=== PATIENT | male | born 1995 | race Caucasian/White ===

== ENCOUNTER 2020-02-09 18:30 | Inpatient (IN) | payer OTHER ==
[2020-02-09] MEDS ORDERED: Lactated Ringer's 500 ML IV SCH (20:30)
[2020-02-09] MEDS ORDERED: HYDROcodone/Acetaminophen 5/325 mg Tablet PO PRN (20:45)
[2020-02-09] MEDS ORDERED: Promethazine HCl 12.5 MG in Sodium Chloride 0.9% 50 ML IVPB PRN (20:45)
[2020-02-09] MEDS ORDERED: cloNIDine 0.1 MG TAB PO PRN (20:45)
[2020-02-09] MEDS ORDERED: Guaifenesin DM 100-10/5 ML UDCUP PO PRN (20:45)
[2020-02-09] MEDS ORDERED: Acetaminophen 325 MG TAB PO PRN (20:45)
[2020-02-09] MEDS ORDERED: Labetalol HCl 100 MG/20 ML VIAL SLOW IVP PRN (20:45)
[2020-02-09] MEDS ORDERED: Electrolyte Replacement Protocol 1 EACH FS SCH (20:45)
[2020-02-09] MEDS ORDERED: Morphine 2 MG/ML VIAL SLOW IVP PRN (20:45)
[2020-02-09] MEDS ORDERED: Ondansetron PF 4 MG/2 ML Vial IVP PRN (20:45)
--- NOTE | 2020-02-09 20:48 | PDOC.HHP ---
Hospitalist HPI - History of Present Illness Abdominal pain History of Present Illness: Patient is a 24 year old male with PMH splenectomy who presents as transfer from [facility] for abdominal pain x 2 days. He developed an abdominal pain, was epigastric and now LUQ localized, improved with tums, but worsened after eating dinner. He reports nausea, vomiting which was quite severe. He had a red BM as well. no fever, headaches, no SOB or chest pain. Outside records reviewed, pertinent findings include WBC 11.1, tbili 4.0, AST 980, ALT 1195. lipase 18, lactic acid 0.7. platelets 633. UA w/ urobilinogen. covid screen negative. CT a/p revealed cholelithiasis, small hiatal hernia.Given IVF, pain medications at [facility], transferred here. he currently complains of abdominal pain which is coming back after dilaudid at [facility] I discussed case with Dr Huggins who is consulting from GI service. Hospitalist ROS - Review of Systems Constitutional: reports: malaise. denies: fever, chills, sweats, weakness, other Eyes: denies: pain, vision change, conjunctivae inflammation, eyelid inflammation, redness, other ENT: denies: ear pain, ear discharge, nose pain, nose discharge, nose congestion, mouth pain, mouth swelling, throat pain, throat swelling, other Respiratory: denies: cough, dry, shortness of breath, hemoptysis, SOB with excertion, pleuritic pain, sputum, wheezing, other Cardiovascular: denies: chest pain, palpitations, orthopnea, paroxysmal noc. dyspnea, edema, light headedness, other Gastrointestinal: reports: nausea, vomiting, abdominal pain, hematochezia. denies: constipation, melena Genitourinary: denies: dysuria, frequency, incontinence, hematuria, retention, other Musculoskeletal: denies: neck pain, shoulder pain, arm pain, back pain, hand pain, leg pain, foot pain, other Skin: denies: rash, lesions, crystal, bruising, other Neurological: denies: weakness, numbness, incoordination, change in speech, confusion, seizures, other All other systems reviewed; all pertinent +/- noted in HPI/Subj - Medication Medications: reviewed Hospitalist History - Past Medical History Other Medical History: no significant PMH - Past Surgical History Other Surgical History: splenectomy - Family History Family History: reports: no pertinent history - Social History Alcohol: reports: Rare - Exam General Appearance: NAD, awake alert Eye: PERRL, anicteric sclera ENT: normocephalic atraumatic, no oropharyngeal lesions, moist mucosa Neck: supple, symmetric, no JVD, no thyromegaly, no lymphadenopathy, no carotid bruit Heart: RRR, no murmur, no gallops, no rubs, normal peripheral pulses Respiratory: CTAB, no wheezes, no rales, no ronchi, normal chest expansion, no tachypnea, normal percussion Gastrointestinal: soft, non-distended, normal bowel sounds, no palpable masses, no hepatomegaly, no splenomegaly, no bruit Gastrointestinal - other findings: diffuse abdominal tenderness to shallow palpation, no guarding or rebound Extremities: no cyanosis, no clubbing, no edema Skin: normal turgor, no lesions, no rashes Neurological: cranial nerve grossly intact, normal sensation to touch, no weakness, no focal deficits, no new deficit Musculoskeletal: normal tone, normal strength, no muscle wasting Psychiatric: normal affect, normal behavior, A&O x 3 Hospitalist Results - Labs Additional comment: 25 pages outside records reviewed, see HPI for summary Hospitalist H&P A/P - Plan Plan: Patient is a 24 year old male with PMH splenectomy who presents as transfer from [facility] for abdominal pain x 2 days. 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 lipase 18, lactic acid 0.7. platelets 633. UA w/ urobilinogen. covid screen negative. - outside hospital CT a/p revealed cholelithiasis, small hiatal hernia - admitted to floor - IVF, zosyn, PRN pain medications, NPO - appreciate GI consultation, follow up AM labs and hepatitis panel DVT ppx - SCDs, hold heparin given report of a red BM GI ppx full code
[2020-02-09] MEDS: Lactated Ringer's 1,000 ML IV SCH (20:54)
[2020-02-09 21:02] VITALS: BMI 21.3
[2020-02-09] MEDS: metroNIDAZOLE 500 MG TAB PO SCH (21:20)
[2020-02-09] MEDS: Famotidine 20 MG TAB PO SCH (21:20)
--- NOTE | 2020-02-09 21:38 | CON ---
DATE OF CONSULTATION: 02/09/2020 CHIEF COMPLAINT: Abdominal pain. HISTORY OF PRESENT ILLNESS: Mr. Lyles is a 24-year-old man, who presented to the [facility] ER with abdominal pain this afternoon. He started with an epigastric sharp pain to the right upper quadrant pain on . Initially, the pain was mild, but then this afternoon, the pain intensified and he came onto the emergency room for further care. He did vomit once at home. He had one episode of diarrhea this morning, but otherwise, no persistent diarrhea, constipation, or blood in the stool. At [facility], he had an ultrasound performed on his abdomen for the right upper quadrant pain, which showed cholelithiasis and a common bile duct dilated at 7-8 mm. His liver tests were elevated and he was transferred to [facility] because [facility] was unable to perform ERCP if needed. He has had no fever. His weight has been stable. He did take some Pepcid and Tums without significant improvement. PAST MEDICAL HISTORY: He had hemolytic anemia previously, for which he underwent splenectomy with resolution of the problem. PAST SURGICAL HISTORY: Splenectomy and upper endoscopy in the past. FAMILY HISTORY: Negative for GI malignancy. SOCIAL HISTORY: Drinks two whiskey drinks per weekend, otherwise no alcohol. He dips about a can of tobacco per day. No smoking. ALLERGIES: INCLUDE PENICILLIN. MEDICATIONS: At home prior to admission, none other than the, 1. Pepcid. 2. Tums mentioned above. In the ER at [facility], he received, 1. 2 L of saline. 2. Dilaudid. 3. Phenergan. REVIEW OF SYSTEMS: Negative x10 systems reviewed except as stated in history of present illness. PHYSICAL EXAMINATION: VITAL SIGNS: Temperature 97.7, pulse 64, and blood pressure 126/83. GENERAL: He is in no acute distress. He is sleepy from the Dilaudid and often has to be stimulated to stay on track with the discussion. He is oriented x3. HEENT: His eyes have slight scleral icterus. His oropharynx is clear without lesions. NECK: No cervical or supraclavicular lymphadenopathy. LUNGS: Clear to auscultation bilaterally. HEART: Regular rate and rhythm without murmur. ABDOMEN: Soft, tender in the epigastric to right upper quadrant region somewhat. This pain has shifted more towards midline now, almost towards the left upper quadrant. EXTREMITIES: Have no lower extremity edema. NEUROLOGIC: Cranial nerves are grossly intact. Pupils are constricted from the pain medicine. LABORATORY DATA: He had COVID-19 swab, which was negative. His lipase was 18, creatinine 0.77, bilirubin 4, alkaline phosphatase 126, AST 980, ALT 1195. CT scan showed gallstones, but no obvious biliary duct dilation. Ultrasound showed the common bile duct mildly dilated at 7-8 mm. IMPRESSION: 1. Cholelithiasis with possible choledocholithiasis. 2. Abnormal liver tests, most likely secondary to choledocholithiasis. Rule out otherwise acute hepatitis. He has had no Tylenol intake. No significant alcohol intake. We will still need to send the acute viral hepatitis panel. RECOMMENDATIONS: 1. Labs to check for other causes of acute hepatitis. 2. The trend of his liver tests will likely dictate the next step. If his liver tests have markedly improved tomorrow and his viral hepatitis screen is negative, then the likely next step is cholecystectomy with intraoperative cholangiogram. If his liver tests remain elevated, then we can proceed with ERCP. His pain has shifted somewhat more toward the midline. We will need to recheck a lipase in the morning. Of note, his globulin is 3, which is not suggestive of autoimmune hepatitis. Job ID: [id number]
[2020-02-10 05:20] LABS: #Basophils 0.1 thou/uL (0.0-0.2); #Eosinphils 0.8 thou/uL (0.0-0.7); #Lymphocytes 1.9 thou/uL (1.20-3.40); #Monocytes 1.5 thou/uL (0.11-0.59); #Neutrophils 7.2 thou/uL (1.40-6.50); %Basophils 0.6 % (0.0-1.0); %Eosinophils 6.9 % (0.0-10.0); %Lymphocytes 16.4 % (21.0-51.0); %Monocytes 13.4 % (0.0-10.0); %Neutrophils 62.8 % (42.0-75.0); Hemoglobin 14.7 g/dL (14.0-18.0); Mean Corpuscular HGB CONC 34.3 g/dL (32.0-36.0); Mean Corpuscular Hemoglobin 32.5 pg (27.0-31.0); Mean Corpuscular Volume 94.7 fL (78.0-98.0); Platelet Count 573 thou/uL (130-400); RBC Distribution Width 11.7 % (11.5-14.5); Red Blood Cell (RBC) Count 4.53 mill/uL (4.70-6.10); White Blood Cell (WBC) Count 11.5 thou/uL (4.8-10.8)
[2020-02-10 05:56] LABS: ALT (SGPT) 846 U/L (8-55); AST (SGOT) 385 U/L (5-34); Albumin 3.8 g/dL (3.5-5.0); Alkaline Phosphatase 133 U/L (40-110); Anion Gap 16 mmol/L (10-20); BUN (Urea Nitrogen) 13 mg/dL (8.9-20.6); Bilirubin, Total 2.8 mg/dL (0.2-1.2); Calc. Creatinine Clearance 145 mL/min (70-130); Calcium 8.8 mg/dL (7.8-10.44); Carbon Dioxide 25 mmol/L (22-29); Chloride 103 mmol/L (98-107); Globulin 2.6 g/dL (2.4-3.5); Glucose 71 mg/dL (70-105); Lipase 25 U/L (8-78); Protein, Total 6.4 g/dL (6.0-8.3); Sodium 140 mmol/L (136-145)
[2020-02-10 06:09] LABS: HBCM Index 0.06 S/CO (0-0.79); HBSAg Index 0.16 S/CO (0-0.99); Hep A IgM AB Non-Reactive (NonReactive); Hep B Surf Ag Non-Reactive S/CO (NonReactive); Hep C IgG Ab Non-Reactive (NonReactive); Hep C Index 0.09 S/CO (0-0.79); Hepatitis B Core IgM Abs Non-Reactive (NonReactive)
[2020-02-10] MEDS: Lactated Ringer's 1,000 ML IV SCH ×3 (07:34→15:53)
[2020-02-10] MEDS: metroNIDAZOLE 500 MG TAB PO SCH ×3 (09:00→21:43)
[2020-02-10] MEDS: Polyethylene Glycol 3350 17 GM Packet PO SCH (09:00)
[2020-02-10] MEDS: Famotidine 20 MG TAB PO SCH ×2 (09:00→21:43)
[2020-02-10] MEDS ORDERED: Iothalamate Meglumine 60% 50 ML VIAL FS ONE ×2 (09:01→12:47)
[2020-02-10] MEDS ORDERED: Indomethacin 50 MG SUPP ONE (09:05)
[2020-02-10] MEDS ORDERED: Dexamethasone 20 MG/5 ML VIAL ONE (09:22)
[2020-02-10] MEDS ORDERED: Ondansetron PF 4 MG/2 ML Vial ONE (09:22)
[2020-02-10] MEDS ORDERED: Rocuronium Bromide 10 MG/ML (10ML VIAL) ONE (09:22)
[2020-02-10] MEDS ORDERED: Lidocaine 1% PF 5 ML VIAL ONE (09:22)
[2020-02-10] MEDS ORDERED: PROPOFOL 200 MG/20 ML VIAL ONE (09:22)
--- NOTE | 2020-02-10 09:39 | PRG ---
DATE OF SERVICE: 02/10/2020 SUBJECTIVE: Mr. Lyles's pain is markedly improved today. His right upper quadrant pain has resolved and he just has some soreness over his left upper quadrant. OBJECTIVE: VITAL SIGNS: Temperature 97.5, pulse 87, blood pressure 109/63. GENERAL: He is in no acute distress. Alert and oriented x3. LUNGS: Clear to auscultation bilaterally. HEART: Regular rate and rhythm without murmur. ABDOMEN: Soft, nontender, and nondistended. Bowel sounds present. EXTREMITIES: No lower extremity edema. LABORATORY DATA: White blood cell count 11.5, hemoglobin 14.7, platelets 573, bilirubin 2.8, AST 385, ALT is 846, alkaline phosphatase 133, lipase 25. Viral hepatitis panel is negative. IMPRESSION: Choledocholithiasis. His pain is markedly improved and his bilirubin has dropped significantly. RECOMMENDATIONS: We will plan to proceed with laparoscopic cholecystectomy with intraoperative cholangiogram first. If the cholangiogram shows a persistent stone, then we will follow with the ERCP. Job ID: [id number]
[2020-02-10] MEDS ORDERED: Morphine 2 MG/ML VIAL ONE (09:48)
--- NOTE | 2020-02-10 10:10 | CON ---
DATE OF CONSULTATION: CHIEF COMPLAINT: Right upper quadrant abdominal pain. HISTORY OF PRESENT ILLNESS: The patient is a 24-year-old male who went to the [facility] with severe right upper quadrant pain and hyperbilirubinemia. He was found to have gallstones and probable choledocholithiasis. They did not have anybody contract clerk over there for ERCP, so he was referred here. He was sent over here and this morning, he feels a lot better. His right upper quadrant pain is pretty well gone. He has now developed some left upper quadrant abdominal pain and his bilirubin has significantly dropped, so I was asked to see him for lap rona and cholangiogram. PAST MEDICAL HISTORY: He is otherwise healthy. He did have a history of hemolytic anemia. PAST SURGICAL HISTORY: He had a splenectomy as a child for hemolytic anemia. MEDICATIONS: He is on no medications. ALLERGIES: HE HAS AN ALLERGY TO PENICILLIN AND CECLOR. FAMILY HISTORY: Heart disease. SOCIAL HISTORY: He is . 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 Rare alcohol. PHYSICAL EXAMINATION: VITAL SIGNS: Temperature 98, pulse 90, and blood pressure 110/61. GENERAL: Well-developed, well-nourished male, in minimal distress, although he is holding his left side. HEENT: Possible slight jaundice. LUNGS: Clear. HEART: Regular rate and rhythm. ABDOMEN: Soft, tender in the right upper quadrant and a little bit in the left upper quadrant. EXTREMITIES: Unremarkable. LABORATORY DATA: White count 11.5, hemoglobin and hematocrit of 14 and 42, platelet count 573. His T bilirubin is down from 6 to 2.8, AST of 385, ALT of 846, and alkaline phosphatase 133. ASSESSMENT: Symptomatic cholelithiasis with choledocholithiasis. PLAN: Laparoscopic cholecystectomy with intraoperative cholangiogram. CONSENT: I have discussed the planned procedure as well as risk of bleeding, infection, injury to bile duct, bowel need to open. He understands and gives informed consent. Job ID: [id number]
--- NOTE | 2020-02-10 12:29 | PDOC.HOSPP ---
- Subjective Encounter Date: 02/10/20 Encounter Time: 08:00 Subjective: Patient seen and examined. No new complaints. No overnight events - Objective Vital Signs & Weight: Vital Signs (12 hours) Temp Pulse Resp BP Pulse Ox 02/10/20 08:33 98.0 F 90 18 110/61 97 02/10/20 04:37 97.5 F L 87 16 109/63 95 02/10/20 00:45 97.5 F L 64 14 106/64 96 Weight Weight 157 lb 3.2 oz I&O: 02/09/20 02/10/20 02/11/20 06:59 06:59 06:59 Intake Total 1500 Balance 1500 Result Diagrams: 02/10/20 05:06 02/10/20 05:06 Hospitalist ROS - Review of Systems ENT: denies: ear pain, ear discharge, nose pain, nose discharge, nose congestion, mouth pain, mouth swelling, throat pain, throat swelling, other Respiratory: denies: cough, dry, shortness of breath, hemoptysis, SOB with excertion, pleuritic pain, sputum, wheezing, other Cardiovascular: denies: chest pain, palpitations, orthopnea, paroxysmal noc. dyspnea, edema, light headedness, other Gastrointestinal: denies: nausea, vomiting, abdominal pain, diarrhea, constipation, melena, hematochezia, other Genitourinary: denies: dysuria, frequency, incontinence, hematuria, retention, other Musculoskeletal: denies: neck pain, shoulder pain, arm pain, back pain, hand pain, leg pain, foot pain, other - Medication Medications: Active Medications Generic Name Dose Route Start Last Admin Trade Name Na PRN Reason Stop Dose Admin Famotidine 20 mg 02/09/20 21:00 02/09/20 21:20 Famotidine 20 Mg Tab PO 20 mg BID ANTIONE Administration Lactated Ringer's 1,000 mls @ 150 mls/hr 02/09/20 20:30 02/10/20 07:34 Lactated Ringer's IV Not Given .[id number] ANTIONE Levofloxacin 750 mg 02/10/20 06:00 02/10/20 07:34 Levofloxacin 750 Mg Tab PO Not Given 0600 [facility] Metronidazole 500 mg 02/09/20 21:00 02/09/20 21:20 Metronidazole 500 Mg Tab PO 500 mg TID ANTIONE Administration Morphine Sulfate 2 mg 02/09/20 20:45 02/09/20 21:25 Morphine 2 Mg/Ml Vial SLOW IVP 2 mg Q4H PRN Administration severe pain 4-10 - Exam General Appearance: NAD, awake alert Eye: PERRL, anicteric sclera ENT: normocephalic atraumatic, no oropharyngeal lesions Neck: supple, symmetric, no JVD Heart: RRR, no murmur, no gallops, no rubs Respiratory: CTAB, no wheezes, no rales, no ronchi Gastrointestinal: soft, non-distended, normal bowel sounds Extremities: no cyanosis, no clubbing, no edema Skin: normal turgor, no lesions Neurological: no focal deficits Musculoskeletal: normal tone, normal strength Hosp A/P (1) Choledocholithiasis Code(s): K80.50 - CALCULUS OF BILE DUCT W/O CHOLANGITIS OR CHOLECYST W/O OBST Status: Acute (2) Abnormal LFTs Code(s): R94.5 - ABNORMAL RESULTS OF LIVER FUNCTION STUDIES Status: Acute - Plan old records reviewed/req Patient is plan for laparoscopic cholecystectomy and intraoperative cholangiogram, based on cholangiogram report will decide if ERCP needed or not We will observe additional day and tomorrow we will repeat labs Medication reviewed and continue provide symptomatic and supportive care.
[2020-02-10] MEDS ORDERED: Lidocaine 1% w/Epinephrine 1:100K 20 ML VIAL ONE (12:47)
[2020-02-10] MEDS ORDERED: Bupivacaine 0.25% HCL 30 ML VIAL ONE (12:47)
[2020-02-10] MEDS ORDERED: Fentanyl 100 MCG/2 ML VIAL ONE ×3 (12:48→15:25)
[2020-02-10] MEDS ORDERED: Clindamycin/D5W 900 mg/50 ml Premix Bag ONE (13:09)
[2020-02-10] MEDS ORDERED: Levofloxacin 500 mg/D5W 100 ml Premix Bag ONE (13:09)
[2020-02-10] MEDS ORDERED: Morphine 2 MG/ML VIAL SLOW IVP PRN (14:40)
[2020-02-10] MEDS ORDERED: HYDROcodone/Acetaminophen 10/325 mg Tablet PO PRN (14:40)
[2020-02-10] MEDS ORDERED: Promethazine HCl 25 MG/ML VIAL IM PRN ×3 (14:40→14:47)
[2020-02-10] MEDS ORDERED: Mag-Al 1200 mg/1200 mg/30 ML UDCUP PO PRN (14:40)
[2020-02-10] MEDS ORDERED: Dextrose 5% in Water 1,000 ML IV PRN (14:40)
[2020-02-10] MEDS ORDERED: Calcium Carbonate 500 MG ChewTAB PO PRN (14:40)
[2020-02-10] MEDS ORDERED: hydrALAZINE 20 MG/ML VIAL SLOW IVP PRN (14:40)
[2020-02-10] MEDS ORDERED: Dextrose 50% Abboject 50 ML SYRINGE SLOW IVP PRN (14:40)
[2020-02-10] MEDS ORDERED: Ondansetron PF 4 MG/2 ML Vial IVP PRN (14:40)
[2020-02-10] MEDS ORDERED: Morphine 4 MG/ML VIAL SLOW IVP PRN (14:40)
[2020-02-10] MEDS ORDERED: HYDROmorphone 2 MG/ML VIAL SLOW IVP PRN (14:46)
[2020-02-10] MEDS ORDERED: Ondansetron HCl/PF 4 MG/2 ML Vial IVP PRN ×2 (14:46→14:47)
[2020-02-10] MEDS ORDERED: Promethazine HCl 25 MG/ML VIAL SLOW IVP PRN ×2 (14:46→14:47)
[2020-02-10] MEDS ORDERED: Ketorolac Tromethamine 30 MG/ML VIAL ONE (14:47)
[2020-02-10] MEDS ORDERED: Ketorolac Tromethamine 30 MG/ML VIAL IVP PRN (14:47)
--- NOTE | 2020-02-10 16:03 | RAD ---
Exam: Intraoperative cholangiogram Exposure: 0.133 mg. 1 second FINDINGS: Single intraoperative view demonstrates cannulation of the cystic duct. There is opacificat ion of the common bile duct with passage of radiotracer into the duodenum. No filling defect. IMPRESSION: Intraoperative fluoroscopy as above.
--- NOTE | 2020-02-10 19:35 | OP ---
DATE OF PROCEDURE: 02/10/2020 PREOPERATIVE DIAGNOSES: Possible choledocholithiasis, left upper quadrant abdominal pain. PROCEDURE PERFORMED: Laparoscopic cholecystectomy with lysis of adhesions. INDICATIONS FOR PROCEDURE: This is a 24-year-old male who as a child had undergone a laparoscopic splenectomy for hemolytic anemia. He was transferred from [facility] with probable choledocholithiasis and elevated bilirubin. However, over the night, his pain got better in the right upper quadrant. His bilirubin dropped from 6 to 2. Also started having quite a bit of left upper quadrant pain, where he had a previous splenectomy. FINDINGS: Gallbladder was full of stones. The cholangiogram showed no filling defects, free flow into the duodenum. There was an area of adhesions in left upper quadrant that were lysed. DESCRIPTION OF PROCEDURE: After informed consent was obtained, the patient was taken to the operating room, given general endotracheal anesthesia. He was placed in the supine position. His abdomen was prepped and draped in usual fashion. Local anesthesia was infiltrated subcutaneously and deep, and a subumbilical incision was performed. Subcu was divided sharply. There were some adhesions near the umbilicus, which were taken down digitally and a blunt 12 mm trocar was inserted. Pneumoperitoneum was created to a pressure of 15 mmHg. A 0-degree laparoscope was inserted under direct vision, three 5-mm ports were placed subcostally. The gallbladder was grasped, advanced superiorly. The peritoneum was dissected to expose the cystic duct and cystic artery in critical view. A clip was placed at the base of the gallbladder, and an incision was made in the cystic duct. An Arrow cholangiocatheter was inserted. An intraoperative cholangiogram was performed utilizing fluoroscopy. It showed free flow into the duodenum, no filling defects. The catheter was removed. The duct triply ligated with hemoclips and divided. The artery triply ligated with hemoclips and divided. The gallbladder was removed from its fossa utilizing electrocautery. It was removed from the umbilical port and sent to Pathology for further analysis. Hemostasis was assured and I looked around for his left upper quadrant pain. The only thing I could find was adhesions. Now, he had adhesions near his umbilicus as well, there was an isolated area of adhesions in the left upper quadrant. These were taken down utilizing the LigaSure. Hemostasis was assured. Trocars and retractors were removed. The fascia was closed with interrupted 0 Vicryl suture. The skin was closed with interrupted 4-0 Rapide. Dermabond was applied. The patient tolerated the procedure well, transferred to Recovery in good condition. Sponge and needle count verified correct x2. Job ID: [id number]
[2020-02-10] MEDS ORDERED: Heparin 5,000 UNITS/ML VIAL SC SCH (21:00)
[2020-02-10] MEDS: Famotidine/PF 20 mg/2ml Vial SLOW IVP SCH (21:43)
[2020-02-10] MEDS ORDERED: Doxylamine 25 MG TAB PO PRN (22:41)
[2020-02-10 22:51] LABS: Bacteria/HPF None Seen HPF (None Seen); Bilirubin Negative (Negative); Blood, Urine Negative (Negative); Clarity Clear (Clear); Glucose, Urine (Dipstick) Normal (Negative); Ketone, Urine 10 mg/dL (Negative); Leukocyte Negative Leu/uL (Negative); Nitrite Negative (Negative); Protein, Urine (Dipstick) Negative (Neg-Trace); RBC/HPF 0-3 HPF (0-3); Specific Gravity, Urine 1.006 (1.002-1.036); Squamous Epithelial None Seen HPF (0-3); Urobilinogen Normal mg/dL (Less than 2); WBC/HPF 0-3 HPF (0-3); pH, Urine 5.5 (5.0-9.0)
[2020-02-10 22:52] LABS: Urine Culture Reflex No No
[2020-02-11] MEDS: HYDROcodone/Acetaminophen 10/325 mg Tablet PO PRN ×3 (03:27→12:21)
[2020-02-11] MEDS: Lactated Ringer's 1,000 ML IV SCH (04:09)
[2020-02-11 05:29] LABS: #Eosinphils 0.2 thou/uL (0.0-0.7); #Monocytes 2.6 thou/uL (0.11-0.59); #Neutrophils 14.8 thou/uL (1.40-6.50); %Basophils 0.1 % (0.0-1.0); %Lymphocytes 10.2 % (21.0-51.0); %Monocytes 13.5 % (0.0-10.0); %Neutrophils 75.2 % (42.0-75.0); Hemoglobin 13.9 g/dL (14.0-18.0); Mean Corpuscular HGB CONC 34.8 g/dL (32.0-36.0); Mean Corpuscular Hemoglobin 32.5 pg (27.0-31.0); Mean Corpuscular Volume 93.3 fL (78.0-98.0); Platelet Count 535 thou/uL (130-400); RBC Distribution Width 11.6 % (11.5-14.5); Red Blood Cell (RBC) Count 4.27 mill/uL (4.70-6.10); White Blood Cell (WBC) Count 19.6 thou/uL (4.8-10.8)
[2020-02-11 05:55] LABS: ALT (SGPT) 537 U/L (8-55); AST (SGOT) 123 U/L (5-34); Albumin 3.8 g/dL (3.5-5.0); Alkaline Phosphatase 112 U/L (40-110); Anion Gap 14 mmol/L (10-20); BUN (Urea Nitrogen) 8 mg/dL (8.9-20.6); Bilirubin, Total 1.1 mg/dL (0.2-1.2); Calc. Creatinine Clearance 157 mL/min (70-130); Calcium 8.6 mg/dL (7.8-10.44); Carbon Dioxide 26 mmol/L (22-29); Chloride 102 mmol/L (98-107); Globulin 2.5 g/dL (2.4-3.5); Glucose 88 mg/dL (70-105); Potassium 3.9 mmol/L (3.5-5.1); Protein, Total 6.3 g/dL (6.0-8.3); Sodium 138 mmol/L (136-145)
[2020-02-11] MEDS: metroNIDAZOLE 500 MG TAB PO SCH (07:48)
[2020-02-11] MEDS: Famotidine 20 MG TAB PO SCH (07:48)
[2020-02-11] MEDS: Polyethylene Glycol 3350 17 GM Packet PO SCH (07:48)
[2020-02-11] MEDS ORDERED: Enoxaparin Sodium 40 MG/0.4 ML SYRINGE SC SCH (09:00)
[2020-02-11] MEDS: Famotidine/PF 20 mg/2ml Vial SLOW IVP SCH (10:13)
--- NOTE | 2020-02-11 10:45 | PDOC.DS.DS ---
Provider - Provider Date of Admission: 02/09/20 18:30 Date of Discharge: 02/11/20 Admitting Provider: Ag Rojas MD Consultations: Gastroentrology, General Surgery Primary Care Physician: Yamileth Hood MD Course - Hospital Course Hospital Course: 24-year-old male who went to initially [facility] emergency room for abdominal pain, over there patient had routine laboratory testing patient was found with abnormal LFT, patient also had a cholelithiasis and possible choledocholithiasis, patient was transferred to our hospital for possible need for ERCP, after admission patient was evaluated by gastroenterology as well as general surgery, gastroenterology recommended that patient should go first laparoscopic cholecystectomy and intraoperative cholangiogram and if patient has a filling defect then they will perform ERCP, this decision was made because next day patient had improvement in his LFT, patient underwent a laparoscopic cholecystectomy and intraoperative cholangiogram which was unremarkable, next day patient has leukocytosis but patient does not have any fever and does not have any abdominal pain, patient is clinically doing much better, and his plan for discharge today by general surgery team, I have prescribed Levaquin and Flagyl for another 5 days. He will continue his previous pain medication. Resuscitation Status: 02/09/20 20:45 Resuscitation Status Routine Resuscitation Status: FULL: Full Resuscitation - Labs Lab Results: 02/11/20 05:01 02/11/20 05:01 Abnormal Lab Results - Last 48 hrs 02/10/20 05:06: Total Bilirubin 2.8 H, AST 385 H, ALT 846 H, Alkaline Phosphatase 133 H 02/10/20 05:06: WBC 11.5 H, RBC 4.53 L, MCH 32.5 H, Plt Count 573 H, MPV 7.0 L, Lymphocytes % 16.4 L, Monocytes % 13.4 H, Neutrophils # 7.2 H, Monocytes # 1.5 H, Eosinophils # 0.8 H 02/10/20 21:25: Urine Ketones 10 A 02/11/20 05:01: BUN 8 L, AST 123 H, ALT 537 H, Alkaline Phosphatase 112 H 02/11/20 05:01: WBC 19.6 H, RBC 4.27 L, Hgb 13.9 L, Hct 39.8 L, MCH 32.5 H, Plt Count 535 H, MPV 7.0 L, Neutrophils % 75.2 H, Lymphocytes % 10.2 L, Monocytes % 13.5 H, Neutrophils # 14.8 H, Monocytes # 2.6 H - Physical Exam Vitals: Vital Signs (12 hours) Temp Pulse Resp BP Pulse Ox 02/11/20 07:30 97.9 F 74 16 120/74 98 02/11/20 03:29 97.8 F 61 18 121/69 96 02/10/20 22:48 98.0 F 68 16 108/68 94 L Weight Weight 157 lb 3.2 oz Physical Exam: The patient was seen and examined on the day of discharge. General patient is currently alert and awake no acute distress Head normocephalic atraumatic Neck supple no JVD no meningeal signs of irritation Lungs clear to auscultation without any rhonchi rales Cardiac S1-S2 regular no murmur no gallop no rub Abdomen surgical site is clean and healthy Extremities no edema Neurologic nonfocal examination Problem - Problem (1) Choledocholithiasis Code(s): K80.50 - CALCULUS OF BILE DUCT W/O CHOLANGITIS OR CHOLECYST W/O OBST Status: Acute (2) Abnormal LFTs Code(s): R94.5 - ABNORMAL RESULTS OF LIVER FUNCTION STUDIES Status: Ruled-out (3) Cholelithiasis Code(s): K80.20 - CALCULUS OF GALLBLADDER W/O CHOLECYSTITIS W/O OBSTRUCTION St atus: Chronic Qualifiers: Cholelithiasis location: gallbladder Cholecystitis presence: with cholecystitis Cholecystitis acuity: acute Biliary obstruction: without biliary obstruction Qualified Code(s): K80.00 - Calculus of gallbladder with acute cholecystitis without obstruction (4) S/P laparoscopic cholecystectomy Code(s): Z90.49 - ACQUIRED ABSENCE OF OTHER SPECIFIED PARTS OF DIGESTIVE TRACT Status: Acute Plan - Discharge Medications Prescriptions: metroNIDAZOLE [Flagyl] 500 mg PO TID #15 tab Levofloxacin [Levaquin] 750 mg PO DAILY #5 tab Home Medications: Medication Instructions Recorded Confirmed Type diphenhydrAMINE HCl [Unisom] 50 mg PO PRN PRN 02/10/20 02/10/20 History HYDROcodone/Acetaminophen [[place] 1 - 2 tab PO Q6H PRN 02/11/20 02/11/20 History 5-325 Tablet] Levofloxacin [Levaquin] 750 mg PO DAILY #5 tab 02/11/20 Rx Ondansetron [Zofran ODT] 4 mg PO Q4HR PRN 02/11/20 02/11/20 History metroNIDAZOLE [Flagyl] 500 mg PO TID #15 tab 02/11/20 Rx Allergies: Penicillins Allergy (Verified 02/09/20 21:02) Rash - Discharge Instructions Activity:: Activity as Tolerated Nourishment:: Regular Diet Therapies:: Not Applicable Equipment/Supplies:: Not Applicable IV Therapy:: Not Applicable - Follow up Plan Referrals: Everett Rosario Jr, MD [Active] - 14 Days Yamileth Hood MD [Primary Care Provider] - Disposition: HOME Quality - Care Measures CORE MEASURES:: N/A
[2020-02-11 12:12] VITALS: BP 126/68; TEMP 98.2
--- NOTE | 2020-02-11 13:46 | DIS ---
DATE OF ADMISSION: 02/09/2020 DATE OF DISCHARGE: 02/11/2020 The patient reports quite a bit of pain. No nausea or vomiting. He is tolerating liquids well. PROCEDURES DURING ADMISSION: Laparoscopic cholecystectomy with intraoperative cholangiogram. PHYSICAL EXAMINATION: VITAL SIGNS: On examination, his temperature is 97.8, pulse 61, and blood pressure 121/69. GENERAL: He looks okay. ABDOMEN: His abdomen is soft, nondistended. The incisions are healing well. LABORATORY DATA: His white count is high at 19.6, H and H 13 and 39, and platelet count of 535. His LFTs have come down. His bilirubin now normal. AST is down to 123, ALT of 537, and alkaline phosphatase 112. ASSESSMENT: Status post laparoscopic cholecystectomy with cholangiogram, doing well. PLAN: Discharge to home. He was discharged to home on hydrocodone and Zofran. He will follow up with me in 2 weeks. Job ID: [id number]
== END 2020-02-11 12:38 | disposition home or self-care (01) | DRG 419 ==
LOC: SURG A 18:30
PROVIDERS: ADMIT Internal Medicine; ATTEND Internal Medicine
PROC: 0FT44ZZ Resection of Gallbladder, Percutaneous Endoscopic Approach (ICD-10-PCS; principal; 2020-02-10)
PROC: BF101ZZ Fluoroscopy of Bile Ducts using Low Osmolar Contrast (ICD-10-PCS; 2020-02-10)
DX: K80.00 Calculus of gallbladder with acute cholecystitis without obstruction (principal); D69.6 Thrombocytopenia, unspecified; D72.829 Elevated white blood cell count, unspecified; Z79.899 Other long term (current) drug therapy; Z90.49 Acquired absence of other specified parts of digestive tract
CPT/HCPCS: 36415; 47532; 80053; 80074; 81001; 83690; 85025; 88304; J1100; J1610; J1885; J1956; J2270; J2405; J2704; J3010; J3490; S0020